=== PATIENT | male | born 1985 | race Caucasian/White ===

== ENCOUNTER 2023-07-04 12:06 | Emergency (ER) | payer OTHER ==
[~2023-07-04] VITALS: Ht 170.2 cm; Wt 69.4 kg
[2023-07-04 12:51] VITALS: BP 140/70; PULSE 81; RESP 20; TEMP 98; O2SAT 99
[2023-07-04] MEDS ORDERED: PYR100 PO (14:45)
[2023-07-04] MEDS ORDERED: ACET-2214 PO (14:45)
[2023-07-04] MEDS ORDERED: CEFP200T20 PO (14:45)
[2023-07-04 15:00] VITALS: BP 135/70; PULSE 81; RESP 20; TEMP 98; O2SAT 99
--- NOTE | 2023-07-04 15:00 | NUR ---
Patient discharged with v/s stable. Written and verbal after care instructions FOR UTI given and explained. Patient alert, oriented and verbalized understanding of instructions. Ambulatory with steady gait. All questions addressed prior to discharge. ID band removed. Patient advised to follow up with PMD. Rx of PYRIDIUM, TYLENOL AND CEFPODOXIME given. Opportunity to ask questions provided and answered.
[2023-07-06] MEDS ORDERED: CIPR500T4 PO (14:45)
== END 2023-07-04 15:00 | disposition home or self-care (01) ==
LOC: MED 12:06
DX: N39.0 Urinary tract infection, site not specified (principal); Z79.899 Other long term (current) drug therapy
CPT/HCPCS: 81002; 87086; 87491; 99283